=== PATIENT | female | born 1975 | race Caucasian/White ===

== ENCOUNTER 2020-12-01 10:23 | Emergency (ER) | payer BC ==
[~2020-12-01] VITALS: Ht 180.3 cm; Wt 63.6 kg
[2020-12-01 10:27] VITALS: Ht 180.3 cm; Wt 63.6 kg
[2020-12-01] MEDS ORDERED: GENTAK3.5 GM LEFT EYE (11:27)
[2020-12-01 11:35] VITALS: BP 120/78
== END 2020-12-01 11:35 | disposition home or self-care (01) ==
LOC: D.ER 10:23
DX: S05.02XA Injury of conjunctiva and corneal abrasion without foreign body, left eye, initial encounter (principal); X58.XXXA Exposure to other specified factors, initial encounter